=== PATIENT | female | born 1950 | race Caucasian/White ===

== ENCOUNTER 2019-07-31 06:58 | Day surgery (SDC) | payer MEDICARE, OTHER ==
[2019-07-27 10:42] LABS: BASOPHILS # (AUTO) 0.1 X10'3 (0-0.2); BASOPHILS % (AUTO) 0.7 % (0-1); EOSINOPHILS # (AUTO) 0.2 X10'3 (0-0.9); EOSINOPHILS % (AUTO) 2.3 % (0-6); LYMPHOCYTES # (AUTO) 2.2 X10'3 (1.1-4.8); LYMPHOCYTES % (AUTO) 22.8 % (21-51); MEAN CORPUSCULAR HEMOGLOBIN 28.3 PG (27.0-31.0); MEAN CORPUSCULAR HGB CONC 33.5 g/dL (33.0-36.5); MEAN CORPUSCULAR VOLUME 84.4 FL (78-98); MEAN PLATELET VOLUME 8.9 FL (7.4-10.4); MONOCYTES # (AUTO) 0.7 X10'3 (0-0.9); MONOCYTES % (AUTO) 7.3 % (2-12); NEUTROPHILS # (AUTO) 6.5 X10'3 (1.8-7.7); NEUTROPHILS % (AUTO) 66.9 % (42-75); PRE OP HEMATOCRIT 43.9 % (35.0-45.0); PRE OP HEMOGLOBIN 14.7 g/dL (12.0-16.0); PRE OP PLATELET COUNT 283 X10'3 (140-440); RED CELL DISTRIBUTION WIDTH 13.8 % (11.5-14.5)
[2019-07-27 10:59] LABS: ALBUMIN 3.6 G/DL (3.4-5.0); ALKALINE PHOSPHATASE 99 IU/L (46-116); BLOOD UREA NITROGEN 19 MG/DL (7-18); BUN/CREATININE RATIO 15.4 (6.6-38.0); CALCIUM 9.4 MG/DL (8.5-10.1); CHLORIDE 107 MMOL/L (99-107); CREATININE 1.23 MG/DL (0.40-0.90); PRE OP ALT 22 U/L (30-65); PRE OP ANION GAP 6 (8-16); PRE OP AST 13 U/L (10-37); PRE OP BILIRUB, TOTAL 0.2 MG/DL (0.0-1.0); PRE OP GLUCOSE 98 MG/DL (70-104); PRE OP POTASSIUM 4.2 MMOL/L (3.4-5.1); PRE OP SODIUM 143 MMOL/L (135-145); TOTAL CARBON DIOXIDE 29.7 MMOL/L (24-32); TOTAL PROTEIN 7.2 G/DL (6.4-8.2); eGFR 43 ML/MIN
[~2019-07-31] VITALS: Ht 157.5 cm; Wt 92.1 kg
[~2019-07-31 06:58] MED LIST: ATOR10TA87 PO; LOSA50TA3 PO; cefazolin/dext.iso 2gm/100ml 100 ML IV ONE; famotidine 10mg tablet PO ONE; famotidine 20mg tablet PO ONE; ringers solution, lacted 1,000 ML IV SCH
[2019-07-31 07:05] VITALS: BP 149/71
[2019-07-31] MEDS ORDERED: famotidine 10mg tablet PO ONE (07:30)
[2019-07-31] MEDS ORDERED: BUPIVAcaine/PF 2.5mg/ml (0.25%) 10ml vial ONE (10:18)
[2019-07-31] MEDS ORDERED: LIDOcaine 0.5% (5mg/ml) 50ml vial ONE (10:18)
[2019-07-31] MEDS ORDERED: fentaNYL/PF 50MCG/1 ML 2ML syringe ONE (10:58)
[2019-07-31] MEDS ORDERED: midazolam 2 mg/2 ml injection ONE (10:59)
[2019-07-31] MEDS ORDERED: propofol inj 20 ML IV ONE (11:08)
[2019-07-31] MEDS ORDERED: ringers solution, lacted 1,000 ML IV SCH (11:18)
[2019-07-31] MEDS ORDERED: ondansetron/PF 4mg/2ml inj IV PRN (11:20)
[2019-07-31] MEDS ORDERED: acetaminophen 1,000mg/100ml IV 100 ML IV PRN (11:20)
[2019-07-31] MEDS ORDERED: fentaNYL/PF 50MCG/1 ML 2ML syringe IV PRN ×2 (11:20)
[2019-07-31] MEDS ORDERED: labetalol 20mg/4ml (5mg/ml) syringe IV PRN (11:20)
[2019-07-31] MEDS ORDERED: proCHLORperazine 10 MG/2 ml inj IV PRN (11:20)
[2019-07-31] MEDS ORDERED: hydrALAZINE 20mg/ml inj. IV PRN (11:20)
[2019-07-31] MEDS ORDERED: morphine 4 MG/ML inj SYRINge IV PRN ×2 (11:20)
[2019-07-31 11:27] VITALS: BP 116/82
--- NOTE | 2019-07-31 11:27 | NUR ---
Received from OR via [facility] , accompanied by Anesthesiologist AMBER and report given by Anesthesiolgist. PATIENTT WITH 20G PIV IN LEFT UE RUNNING LR AT 100. DENIES PAIN. RIGHT WRIST DRESSING IS CDI. SHRESTHA + CAP REFILL. ELEVATED UPON ARRIVAL. Addendum: 07/31/19 at 1140 by Wyatt Ramirez RN, RN Amended: Links added.
[2019-07-31 11:37] VITALS: BP 114/81
[2019-07-31 11:47] VITALS: BP 119/85
[2019-07-31 11:57] VITALS: BP 119/87
--- NOTE | 2019-07-31 12:16 | NUR ---
ALL DC CRITERIA HAS BEEN MET. IV TAKEN OUT WITHOUT COMPLICATIONS. ALL INSTRUCTIONS COVERED AND ALL QUESTIONS ANSWERED. DRESSINGS CDI. OUT VIA WHEELCHAIR TO PERSONAL VEHICLE WHERE PATIENT WAS SECURED IN AND DRIVEN HOME BY FAMILY. Addendum: 07/31/19 at 1216 by Wyatt Ramirez RN, RN Amended: Links added.
== END 2019-07-31 12:07 | disposition home or self-care (01) ==
LOC: PAS 06:58
PROVIDERS: ATTEND Orthopaedic Surgery Hand Surgery
DX: G56.01 Carpal tunnel syndrome, right upper limb (principal); M65.331 Trigger finger, right middle finger; I12.9 Hypertensive chronic kidney disease with stage 1 through stage 4 chronic kidney disease, or unspecified chronic kidney disease; N18.9 Chronic kidney disease, unspecified; E78.00 Pure hypercholesterolemia, unspecified; M19.90 Unspecified osteoarthritis, unspecified site; Z87.891 Personal history of nicotine dependence; Z90.710 Acquired absence of both cervix and uterus; Z90.49 Acquired absence of other specified parts of digestive tract; Z98.890 Other specified postprocedural states; Z88.8 Allergy status to other drugs, medicaments and biological substances; Z79.899 Other long term (current) drug therapy; Z98.41 Cataract extraction status, right eye; Z98.42 Cataract extraction status, left eye; F12.90 Cannabis use, unspecified, uncomplicated
CPT/HCPCS: 26055; 36415; 64721; 80053; 82948; 85025; 93005; J2001; J2250; J2704; J3010; J3490; A4215; A6449; J7120